=== PATIENT | male | born 2000 | race Two or more races ===

== ENCOUNTER 2024-04-18 11:39 | Emergency (ER) | payer OTHER ==
[~2024-04-18] VITALS: Ht 170.2 cm; Wt 78.1 kg
[2024-04-18] MEDS ORDERED: ZOLO50TA PO ×2 (11:49→12:34)
[2024-04-18 12:45] VITALS: BP 120/82; TEMP 97.3; O2SAT 97
== END 2024-04-18 12:46 | disposition home or self-care (01) ==
LOC: M ED 11:39
DX: Z76.0 Encounter for issue of repeat prescription (principal); F41.9 Anxiety disorder, unspecified; F32.A Depression, unspecified; Z79.899 Other long term (current) drug therapy